=== PATIENT | female | born 1970 | race Caucasian/White ===

== ENCOUNTER 2025-09-20 13:01 | Outpatient (OUT) | payer OTHER, SELFPAY ==
--- OUTSIDE RECORDS SUMMARY | 2025-09-20 13:14 | XMS_ITS | Clinical Summary ---
Author Organization [email or web address] [facility] Address [id number] [place] [address] Care Team Providers Care Equine Science Instructor Name Role Phone Unavailable Primary Care Provider Unavailabl e Social History Tobacco UseTypesPacks/DayYears UsedDateSmoking Tobacco: Never AssessedChildcare AnswerDate NydzzrmjBvteklgumLyipjfs78/11/2019EmploymentAnswerDate Recorded KyxrpwslhqWvjzcwc36/11/2019CommentsUnknownSex and Gender Information ValueDate RecordedSex Assigned at BirthNot on fileLegal StuHmecae47/04/2015 6:04 PM EDTGender IdentityNot on fileSexual OrientationNot on file Plan of Treatment Not on file Medical Devices Not on file
--- OUTSIDE RECORDS SUMMARY | 2025-09-20 13:14 | XMS_ITS | Clinical Summary ---
Author Organization [facility] Address [address], [address] [place] [address] Care Team Providers Care Welt Treater Name Role Phone House .DO Charles P Primary Care Provider + Allergies Active AllergyReactionsCriticalityNoted DateCommentsCodeineNausea And Vomiting Low10/20/2023 Other Reaction(s): Nausea Medications MedicationSigDispense QuantityRefillsLast FilledStart DateEnd DateStatus ibuprofen (ADVIL;MOTRIN) 200 MG tablet Take 1 tablet by mouth 2 times daily Take 4 tablet 2 time a dayActive Wjxvter-Mulybqfhgocis-Rppzgtcs (EXCEDRIN PO) Take 2 tablets by mouth dailyActive MELATONIN PO Take 7 mg by mouth nightly as neededActive metroNIDAZOLE (METROGEL) 0.75 % gel Apply topically 2 times daily. 1 each 5Active Active Problems ProblemNoted DateDiagnosed DateMixed incontinence urge and stress (male)(female) 08/14/2025Female /13/2025Vaginal vault /13/2025 Encounters DateTypeDepartmentCare OujcZdolorthkkc08/13/2025Orders Only [facility] [address] [place] [address] Tulio Rendon DO Pre-op testing (Primary Dx)08/14/2025Prep for Procedure [facility] [address] [place] [address] Tulio Rendon, DO Mixed incontinence urge and stress (male)(female); Female cystocele; Vaginal vault uxybinyw53/10/2025 10:30 AM EDTProcedure visit [facility] [address] [place], [place] [id number] Tulio Rendon, DO Pessary maintenance (Primary Dx); Calais-Walker grade 3 cystocele; Urinary incontinence, mixed; Bloating; Urgency of urination; Nocturia; Smoker; Retention of urine; 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; Elective surgery; Intrinsic sphincter deficiency (ISD); Vaginal vault dlzetdxy53/26/2025 10:00 AM EDTOffice Visit [facility] [address] [place], [place] [id number] Ivett Elmore, HYDROELECTRIC MACHINERY MECHANIC - GLUE JOINTER OPERATOR Pessary maintenance (Primary Dx); Gordy-Walker grade 3 enhrcfuyv92/26/2025Results Follow-Up [facility] [address] [place] [address] Ivett Elmore, HYDROELECTRIC MACHINERY MECHANIC - GLUE JOINTER OPERATOR 07/19/2025 3:00 PM EDTAncillary Procedure [facility] [address] [place] [address] Urinary incontinence, mixed; Fkocjkvl57/17/2025 1:30 PM EDTOffice Visit [facility] [address] [place] [address] Ivett Elmore, HYDROELECTRIC MACHINERY MECHANIC - GLUE JOINTER OPERATOR Pessary maintenance (Primary Dx); Calais-Walker grade 3 jtelpheoi73/17/2025 1:00 PM EDTProcedure visit [facility] [address] [place] [address] Tulio Rendon DO Urgency of urination (Primary Dx); Urinary incontinence, mixed; Nocturia; Retention of urine; Smoker; Calais-Walker grade 3 liwesrlmd10/12/2025 10:00 AM EDTOffice Visit [facility] [address] [place] [address] Ivett Elmore APRN - CNP Encounter for fitting and adjustment of pessary (Primary Dx)06/30/2025 9:30 AM EDTOffice Visit [facility] [address] [place] [address] Ivett Elmore APRN - CNP Urgency of urination (Primary Dx); Retention of urine; Urinary incontinence, mixed; Nocturia; Bloating; 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; Calais-Walker grade 3 cystocele; Smokerfrom Last 3 Months Family History RelationNameStatusCommentsBrotherAliveDaughter 1AliveDaughter 2AliveFather DeceasedMotherAliveSisterAliveSon 1AliveSon 2Alive Social History Tobacco UseTypesPacks/DayYears UsedDateSmoking Tobacco: Every KiqOgngsozldp583 Smokeless Tobacco: Never Tobacco Cessation:Ready to Q uit: Not Asked; Counseling Given: Not Answered Alcohol UseStandard Drinks/WeekCommentsNever0 (1 standard drink = 0.6 oz pure alcohol)CommentsNoSex and Gender InformationValueDate RecordedSex Assigned at WsimyOsnomb82/03/2025 1:12 PM EDTLegal GsuElmlqc67/04/2025 2:53 PM EDTGender IdentityNot on fileSexual OrientationNot on file Last Filed Vital Signs Vital SignReadingTime TakenCommentsBlood Swujmgxn442/15942 10:40 AM EDT Zxblg8582 10:37 AM YACGnyuzlveusy55.4 ??C (97.5 ??F)07/28/2025 10:41 AM EDTRespiratory Rate--Oxygen Rfixaprfhv95%08/11/2025 10:37 AM EDTInhaled Oxygen Concentration--Ilfmlf57.6 kg (166 lb 9.6 oz)08/11/2025 10:37 AM UJWSvxbzb204.7 cm (5' 8 )06/30/2025 10:00 AM EDTBody Mass Index25.33006/30/2025 10:00 AM EDT Plan of Treatment DateTypeDepartmentCare Team (Latest Contact Info)Mlzaruhfmpg01/26/2025 10:00 AM ESTOffice Visit [facility] [address] [place] [address] Ivett Elmore, HYDROELECTRIC MACHINERY MECHANIC - GLUE JOINTER OPERATOR [address] [address] Remove pessary for surgery 09/29/2511 7:30 AM ESTHospital Encounter [facility] [place] [address] [place] [address] Tulio Rendon, DO [address] [address] 09/29/2025 7:30 AM EST - 09/29/2025 10:00 [place]Sur[place] [facility] [place] [address] [place] [address] Tulio Rendon, DO [address] [address] LAPAROSCOPIC ROBOTIC SACRAL COLPOPEXY WITH RESTORELLE MESH, ANTERIOR VAGINAL REPAIR AND BILATERAL KZOIXCGMLRLBW81/05/2025 9:15 AM ESTOffice Visit [facility] [address] [place] [address] Ivett Elmore, HYDROELECTRIC MACHINERY MECHANIC - GLUE JOINTER OPERATOR [address] [place] [address] 1 WK PO11/10/2025 10:15 AM ESTOffice Visit [facility] [address] [place] [address] Tulio Rendon, DO [address] [facility] [address] [place] [address] 6 WK PONamePriorityAssociated DiagnosesDate/TimeSACRAL COLPOPEXY ROBOTIC Mixed incontinence urge and stress (male)(female) Female cystocele Vaginal vault prolapse 09/29/2025 7:30 AM ESTCYSTOSCOPY INJECTION Mixed incontinence urge and stress (male)(female) Female cystocele Vaginal vault prolapse 09/29/2025 7:30 AM ESTHealth MaintenanceDue DateLast DoneCommentsDepression Iphrzh7706/22/1980HIV bdjway7606/22/1983Hepatitis C vioqov6006/22/1986DTaP/Tdap/Td vaccine (1 - Tdap)1987Hepatitis B vaccine (1 of 3 - 19+ 3-dose series) 1987Pneumococcal 50+ years Vaccine (1 of 2 - PCV)1987Diabetes screen 2003Breast cancer cibfxa4306/22/20084191Zdzblh97/21/1184Gnwsajhfwri99/21/2013 Colorectal Cancer Nmgybl7506/22/2013FIT/FOBT: Average risk2013Fecal-DNA (Cologuard): Average risk2013Sigmoidoscopy/CT cfdkunclkmxr92/21/2013Lung Cancer Screening &/or Yytdiigqzl71/21/2018Shingles vaccine (1 of 2)2018Flu vaccine (#1)501/4COVID-19 Vaccine (2024- season)2025 02/21/2021, 01/31/2021Hepatitis A vaccineAged OutNo longer eligible based on patient's age to complete this topicHib vaccineAged OutNo longer eligible based on patient's age to complete this topicMeningococcal (ACWY) vaccineAged OutNo longer eligible based on patient's age to complete this topicMeningococcal B vaccineAged OutNo longer eligible based on patient's age to complete this topic Polio vaccineAged OutNo longer eligible based on patient's age to complete this topic Procedures Procedure NamePriorityDate/TimeAssociated DiagnosisCommentsUS NON OB KCHTIUTNANUHJjsbigd97/17/2025 3:15 PM EDT Urinary incontinence, mixed Bloating POCT URINALYSIS DIPSTICK W/O MICROSCOPE (AUTO)Nrgxsqq8307/19/2025 2:19 PM EDT Urgency of urination POCT URINALYSIS DIPSTICK W/O MICROSCOPE (AUTO)Cyagbcb2206/30/2025 10:04 AM EDT Urgency of urination ANAMARIA,POST-VOID RES,US,NON-LLKMLCFCzsbyfh93/29/2025 Retention of urine from Last 3 Months Results * US NON OB TRANSVAGINAL (07/19/2025 3:15 PM EDT)Anatomical RegionLaterality ModalityPelvisUltrasoundSpecimen (Source)Anatomical Location / Laterality Collection Method / VolumeCollection TimeReceived Time Narrative 07/27/2025 8:54 AM EDT S/P PARTIAL HYSTERECTOMY. VAG CUFF UNREMARKABLE. BILATERAL OVARIES UNREMARKABLE. NO FREE FLUID. Authorizing ProviderResult TypeResult StatusIvett Elmore HYDROELECTRIC MACHINERY MECHANIC - CNPIMG US ORDERABLESFinal Result * POCT Urinalysis No Micro (Auto) (07/19/2025 2:19 PM EDT) Only the most recent of2 resultswithin the time period is included. ComponentValueRef RangeTest MethodAnalysis TimePerformed AtPathologist Signature Color, UAyellowClarity, UAclearGlucose, UA POCnormmg/dLBilirubin, UAnegKetones, UAnegmg/dLSpec Grav, UA1.015Blood, UA POCnegpH, AH0Etzhguf, UA POCnegmg/dL Urobilinogen, UAnormmg/dLLeukocytes, UAnegNitrite, UAnegSpecimen (Source) Anatomical Location / LateralityCollection Method / VolumeCollection Time Received UcbrGrinc25/17/2025 2:19 PM EDT Narrative Gaurang Natividad, LPN - 07/19/2025 2:19 PM EDT Patient was able to void at start of testing. Patient was then catheterized with a 14 FR catheter, strict sterile technique maintained, 65 cc clear non odorous urine obtained, patient tolerated procedure well. Authorizing ProviderResult TypeResult Howard Elmore APRN - [facility] TEST ORDERABLESEdited Result - Final * ANAMARIA,POST-VOID RES,US,NON-IMAGING (06/30/2025) Narrative Manuel Bergeron LPN - 06/30/2025 PVR = 102 ml Authorizing ProviderResult TypeResult Howard Elmore APRN - [facility] PROCEDURE/MINOR SURGICAL ORDERABLESFinal Result from Last 3 Months Insurance Care Teams Team MemberRelationshipSpecialtyStart DateEnd Cosme Miranda Sr., DO [address] [place], [place] [phone] PCP - GeneralFamily Evlsnzfz81/22/25
--- OUTSIDE RECORDS SUMMARY | 2025-09-20 13:14 | XMS_ITS | Clinical Summary ---
Author Organization [facility] Address [address] [place] [address] Care Team Providers Care Data Communications Technician Name Role Phone Jerri Dugan MD, IBCLC Primary Care Provid er Allergies Active AllergyReactionsCriticalityNoted DateCommentsCodeineGI intolerance 10/20/2023 Other Reaction(s): Nausea Medications MedicationSigDispense QuantityRefillsLast FilledStart DateEnd DateStatus buPROPion XL (Wellbutrin XL) 300 MG 24 hr tablet Indications:Tobacco dependencyTake 1 tablet (300 mg) by mouth in the morning. Do not crush, chew, or split.. 90 tablet 11/25/2023ctive ibuprofen 200 MG tablet Take by mouthActive tendbeb-jbvlrpjsrltou-dxhgcymq (Excedrin Migraine) 250-250-65 MG tablet Take 2 tablets by mouth every 8 (eight) hours if needed for headachesActive MELATONIN PO Take 7 mg by mouth as needed at bedtime (Insomnia)Active Active Problems ProblemNoted DateDiagnosed DateAbscess of back01/29/2024Epidermal cyst01/29/2024 Yppqbefz47/24/2024 Overview (11/25/2023): Controlled on trazodone Ptosis of right wkzuzd2110/20/2023 Overview (11/25/2023): Right eye ptosis since her fall in Sep 2023 Physical exam is also significant for right upper and lower extremity weakness. No confirmed history of CVA, although somewhat in the past has suggested a TIA (which she attributes symptoms to her sedating medications). Her right eyebrow does not raise like the left, and there is decreased wrinklesin the right forehead, suggesting a peripheral nerve pathology rather than central stroke. However,given her history, extremity weakness, smoking status, I do recommend had imaging to investigate orevidence of infarction. If present, we should discuss aspirin and statin therapy. MRI has been ordered, and approved by insurance. Encouraged patient to schedule this. If no radiographic evidence of infarction, consider Lyme serology. 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 Physical exam is also significant for right upper and lower extremity weakness. No confirmed history of CVA, although somewhat in the past has suggested a TIA (which she attributes symptoms to her sedating medications). Her right eyebrow does not raise like the left, and there is decreased wrinkles in the right forehead, suggesting a peripheral nerve pathology rather than central stroke. However, given herhistory, extremity weakness, smoking status, I do recommend had imaging to investigate or evidence of infarction. If present, we should discuss aspirin and statin therapy. Recommend follow up in 1 month to review imaging. If no radiographic evidence of infarction, consider Lyme serology. 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 Approximately a 35 pack year smoking history. Treatment plan: Wellbutrin to assist with smoking cessation Assessment & Plan (11/25/2023 11:27 AM EST): She has significantly cut down from 1 pack per day to 3-5 cigarettes per day while on Wellbutrin 150 mg daily. She denies side effects from the medication. She is interested in increasing the dose to300 mg. Blood pressure and heart rate are appropriate. Sent Rx of the new dose. If side effects arise, she can back down to the 150 mg dose Assessment & Plan (10/20/2023 12:28 PM EST): Patient is interested in smoking cessation. She is currently smoking little less than a pack a day,started at age 13. Approximately a 35 pack year smoking history. Encouraged patient to quit smoking. Patient is interested in smoking cessation. We discussed pharmacologic options for smoking cessation, including nicotine replacement therapy, Chantix, and Wellbutrin. After discussing the risks and benefits of each, the patient is interested in trying bupropion. Discussed the benefits and potential side effects of the medications. Follow up with me in 1 month Chronic ayqjszgvj93/19/2023 Assessment & Plan (10/20/2023 12:21 PM EST): History of recurrent sinus congestion, which usually responds to Z-Jono at and steroid. She is having a current flare for the past 6 weeks, worse than previous because she has not been able to see a doctor. No systemic symptoms. Physical exam does demonstrate sinus congestion facial pressure, purulent nasal discharge. Deviated nasal septum may be contributing to her chronic sinusitis. Reviewed nrlc-suz-sybczyv supportive measures, including oral antihistamines and nasal corticosteroids. At this time, given the duration of the symptoms, I will treat with a Medrol Dosepak and Augmentin. Considerprobiotic to reduce the risk of antibiotic associated diarrhea. Follow up as needed. Encounters DateTypeDepartmentCare HjnfTckdoqemzfx28/15/2025Telephone [facility] [address] [place] [address] Jina Saenz MA billingfrom Last 3 Months Immunizations ImmunizationAdministration DatesNext DueInfluenza, injectable, quadrivalent, preservative free11/25/2023 Family History Medical HistoryRelationNameCommentsCancerFatherFrank BollingDiabetesFatherFrank BollingLung cancerFatherFrank BollingStrokeMaternal GrandmotherMargaret Zena DiabetesMotherSherry BollingRelationNameStatusCommentsBrotherAliveDaughter 1 AliveDaughter 2AliveFatherFrank BollingDeceasedMaternal GrandmotherMargaret StidhamMotherShkelsi BollingAliveSisterAliveSon 1AliveSon 2Alive Social History Tobacco UseTypesPacks/DayYears UsedDateSmoking Tobacco: Every DayCigarettes0.330 Smokeless Tobacco: Never Tobacco Cessation:Ready to Q uit: Not Asked; Counseling Given: Not Answered Alcohol UseStandard Drinks/WeekCommentsNever0 (1 standard drink = 0.6 oz pure alcohol)Social Connection and Isolation PanelAnswerDate RecordedIn a typical week, how many times do you talk on the phone with family, friends, or neighbors?More than three times a week01/10/2024How often do you get together with friends or relatives?Twice a week01/10/2024How often do you attend scientology or confucianism services?Never01/10/2024o you belong to any clubs or organizations such as scientology groups, unions, fraternal or athletic groups, or school groups?No 01/10/2024How often do you attend meetings of the clubs or organizations you belong to?Never01/10/2024re you , , , , never , or living with a partner?Kdokygg9801/10/2024UDIT-CAnswerDate RecordedQ1: How often do you have a drink containing alcohol?Never01/10/2024Q2: How many drinks containing alcohol do you have on a typical day when you are drinking? Patient does not drink01/10/2024Q3: How often do you have six or more drinks on one occasion?Never01/10/2024Overall Financial Resource Strain (CARDIA)AnswerDate RecordedHow hard is it for you to pay for the very basics like food, housing, medical care, and heating?Not very hard01/10/2024HQ-2AnswerDate RecordedPatient Health Questionnaire-2 Yrtmv110Fin[facility] [place] of Occupational Health - Occupational Stress QuestionnaireAnswerDate RecordedDo you feel stress - tense, restless, nervous, or anxious, or unable to sleep at night because your mind is troubled all the time - these days?To some kvpyfl7501/10/2024Exercise Vital SignAnswerDate RecordedOn average, how many days per week do you engage in moderate to strenuous exercise (like a brisk walk)?7 days01/10/2024On average, how many minutes do you engage in exercise at this level?150+ min01/10/2024 Hunger Vital SignAnswerDate RecordedWithin the past 12 months, you worried that your food would run out before you got the money to buymore.Never true01/10/2024 Within the past 12 months, the food you bought just didn't last and you didn't have money to get more.Never true01/10/2024RAPARE - TransportationAnswerDate RecordedIn the past 12 months, has lack of transportation kept you from medical appointments or from getting medications?No01/10/2024In the past 12 months, has lack of transportation kept you from meetings, work, or from getting things needed for daily living?No01/10/2024Housing Stability Vital SignAnswerDate RecordedIn the last 12 months, was there a time when you were not able to pay the mortgage or rent on time?No01/10/2024In the last 12 months, how many places have you lived?In the last 12 months, was there a time when you did not have a steady place to sleep or slept in [facility] (including now)?No 01/10/2024CommentsNoSex and Gender InformationValueDate RecordedSex Assigned at BirthNot on fileLegal ZtzPgcxio80/15/2023 11:47 PM EDTGender IdentityNot on fileSexual OrientationNot on file Last Filed Vital Signs Vital SignReadingTime TakenCommentsBlood Kwxgydmm783/7008 11:15 AM EDT Wiost042906/15/2025 11:15 AM GRLJdqbfpoasdq91.9 ??C (96.6 ??F)06/15/2025 11:15 AM EDTRespiratory Rate--Oxygen Ssfnueohjy58%06/15/2025 11:15 AM EDTInhaled Oxygen Concentration--Rnhkrv59.3 kg (166 lb)06/15/2025 11:15 AM AOMDozdqe932.7 cm (5' 8 )06/15/2025 11:15 AM EDTBody Mass Index25.2408 11:15 AM EDT Plan of Treatment Health MaintenanceDue DateLast DoneCommentsCT Qnheofahnemz1968Colonoscopy 1968Colorectal Cancer Lutihhlds1968FIT-DNA1968FIT1968 FOBT1968 4600Zwtgcteqkxroz1968Pneumococcal Vaccine: Pediatrics (0 to 5 Years) and At-Risk Patients (6 to 64 Years) (1 of 2 - PCV)1987Mammogram 2008COVID-19 Vaccine (3 - 2024- season)/, 01/31/2021 Influenza Vaccine (#1)/ [place] [address] Care Teams Team MemberRelationshipSpecialtyStart DateEnd Jerri Dugan MD, IBCLC [address] [place] [address] PCP - GeneralFamily Mqwaxmsd87/19/23
--- NOTE | 2025-09-20 13:39 | ECG_ITS ---
[facility] Test Date: 2025-09-20 Pat Name: DREW RODRIGUEZ Department: Room: - Gender: Female Registered Nurse Renal: : 1970 Requested By: [id number] Order Number: [id number] Reading MD: PEDRO JAMESON Measurements Intervals [place] Rate: 85 P: 74 NE: 180 QRS: 60 QRSD: 90 T: 66 QT: 368 QTc: 439 Interpretive Statements SINUS RHYTHM POSSIBLE RIGHT VENTRICULAR CONDUCTION DELAY [RSR (QR) IN V1/V2] NONSPECIFIC ST & T-WAVE ABNORMALITY No previous ECG available for comparison Electronically Signed On 09-20-2025 16:13:05 EST by PEDRO JAMESON
[2025-09-20 14:04] LABS: Albumin Level 3.6 g/dL (3.4-5.0); Anion Gap 12.9; Blood Urea Nitrogen 8.0 mg/dL (7.0-18.0); Calcium 8.5 mg/dL (8.5-10.1); Carbon Dioxide 28.6 mmol/L (21.0-32.0); Chloride 107 mmol/L (98-107); Estimated GFR (African America >60 (>=60 mL/min/1.73m^2); Estimated GFR (Non-African Ame >60 (>=60 mL/min/1.73m^2); Glucose 93 mg/dL (74-106); Potassium 3.5 mmol/L (3.5-5.1); Sodium 145 mmol/L (136-145)
[2025-09-20 14:29] LABS: Hematocrit 38.8 % (36.0-48.0); Hemoglobin 12.9 g/dL (12.0-16.0); Immature Granulocytes Abs Auto 0.02 10^3/uL (0.00-0.03); Immature Granulocytes Pct Auto 0.2 % (0.0-0.5); Lymphocytes Absolute Auto 3.7 10^3/uL (1.2-3.8); Mean Corpuscular HGB Conc 33.2 g/dL (29.9-35.2); Mean Corpuscular Hemoglobin 30.5 pg (26.7-34.0); Mean Corpuscular Volume 91.7 fL (81.0-99.0); Platelet Count 297 10^3/uL (150-450); Red Blood Count 4.23 10^6/uL (4.20-5.40); White Blood Count 8.4 10^3/uL (4.0-11.0)
== END 2025-09-20 13:02 | disposition home or self-care (01) ==
LOC: CARD 13:10
PROVIDERS: PCP Family Medicine
DX: Z01.818 Encounter for other preprocedural examination (principal)
CPT/HCPCS: 36415; 80048; 82042; 85025; 86850; 86900; 86901; 93005